=== PATIENT | male | born 1960 | race Caucasian/White ===

== ENCOUNTER → 2018-12-03 | Outpatient (CLI) | payer OTHER ==
--- NOTE | 2018-12-03 18:43 | MR ---
EXAMINATION TYPE: MR shoulder LT wo con DATE OF EXAM: 12/03/2018 COMPARISON: NONE HISTORY: Pain in left shoulder per order. Left shoulder pain with difficulty raising overhead since m id August 2018 TECHNIQUE: Multiplanar, multisequence imaging of the left shoulder is performed without contrast. FINDINGS: Rotator Cuff: Distal supraspinatus and infraspinatus tendons are intact. Subscapularis tendon is inta ct. Rotator cuff muscle bulk is preserved. No tears or abnormal signal is evident. Acromioclavicular Joint: Mild to moderate narrowing with mild capsular hypertrophy. Distal acromion m orphology is unremarkable. Underlying fat plane is maintained. Glenohumeral Joint: Small to moderate glenohumeral joint effusion. No significant spurring. Mild narr owing. Labrum: The superior labrum shows increased signal probable degenerative tear versus prominent cleft coronal image 13. Biceps Tendon: The long head of biceps is in normal location within bicipital groove. Bone marrow signal: No focal abnormal marrow signal is appreciated. Other: No additional significant abnormality is appreciated. IMPRESSION: No rotator cuff tear is evident.
== END ==
LOC: RADMRIMAIN 17:34
PROVIDERS: ATTEND Nurse Practitioner Acute Care
DX: M25.512 Pain in left shoulder (principal)

== ENCOUNTER → 2019-08-17 | Outpatient (CLI) | payer OTHER ==
--- NOTE | 2019-08-18 11:19 | CTL ---
EXAMINATION TYPE: CT Low Dose Lung DATE OF EXAM ORDERED: 08/17/2019 HISTORY: Personal history of tobacco abuse for 42 years. Lung cancer screening CT DLP: 126.[address] CTDI: 3.4 mGy Automated exposure control for dose reduction was used. SCREENING VISIT: Initial COMPARISON: None TECHNIQUE: Low dose computed tomography scan was performed through the chest at 1 mm thick sections a nd reconstructed images in the coronal plane at [address] DIAGNOSTIC QUALITY: Satisfactory FINDINGS: LUNG NODULES: None. A 3 mm solid pulmonary nodule seen in the right lung apex on series 4 image 36. Calcified granuloma is seen in the medial right lung apex on series 4 image 63, benign finding. 2 mm solid pulmonary nodule seen peripherally in the left upper lobe on series 4 image 78. LUNGS: COPD: Severity: Mild paraseptal Fibrosis: Severity: None Lymph nodes: No pathologically enlarged lymph nodes. RIGHT PLEURAL SPACE: Effusion: None Calcification: None Thickening: None Pneumothorax: None LEFT PLEURAL SPACE: Effusion: None Calcification: None Thickening: None Pneumothorax: None HEART: Heart Size: Normal Coronary calcification: Mild to moderate Pericardial effusion: Trace anterior OTHER FINDINGS: Upper abdomen: 4 mm nonobstructing left upper pole renal calculus. Bony thorax: Very minimal degenerative change Supraclavicular region: Unremarkable IMPRESSION: Lung RADS 2-benign appearance or behavior-nodules with a very low likelihood of becoming a clinically active cancer due to size. Continued annual screening with low dose CT chest is recommen ded in [address] CHEST RECOMMENDATION: Follow-up low-dose annual CT in [address] LUNG RAD: Lung-Rad 2 Benign Appearance or Behavior
== END | disposition home or self-care (01) ==
LOC: RADCTMAIN 07:43
DX: Z12.2 Encounter for screening for malignant neoplasm of respiratory organs (principal); Z87.891 Personal history of nicotine dependence

== ENCOUNTER → 2020-12-22 | Outpatient (CLI) | payer OTHER ==
--- NOTE | 2020-12-22 15:34 | CTL ---
EXAMINATION TYPE: CT Low Dose Lung DATE OF EXAM ORDERED: 12/22/2020 HISTORY: Long-term tobacco use. Lung cancer screening CT DLP: [address] CTDI: 1.95 mGy Automated exposure control for dose reduction was used. SCREENING VISIT: First study after baseline COMPARISON: Prior study 2019 TECHNIQUE: Low dose computed tomography scan was performed through the chest at 1 mm thick sections a nd reconstructed images in the coronal plane at [address] DIAGNOSTIC QUALITY: Satisfactory FINDINGS: LUNG NODULES: Present, detailed below: Stable 2 mm superior right upper lobe nodule axial image 49. Stable 3 mm calcified posterior medial right upper lobe nodule or granuloma axial image 76. No new or enlarging greater than 5 mm nodules. LUNGS: COPD: Severity: Mild Fibrosis: Severity: Mild biapical Lymph nodes: None Other findings: None RIGHT PLEURAL SPACE: Effusion: None Calcification: None Thickening: None Pneumothorax: None LEFT PLEURAL SPACE: Effusion: None Calcification: None Thickening: None Pneumothorax: None HEART: Heart Size: Normal Coronary calcification: Mild to moderate Pericardial effusion: Tiny anterior inferior aspect redemonstrated OTHER FINDINGS: Upper abdomen: Stable 4 mm nonobstructing left renal calculus axial image 71 posteriorly. Bony thorax: None Supraclavicular region: None Other: None IMPRESSION: No suspicious new or enlarging nodules. CT LUNG RAD AND CT CHEST RECOMMENDATION: Lung-Rad 2 Benign Appearance or Behavior: Continue annual sc reening with LDCT in 12 months. S Modifier (other clinically significant findings): None
== END | disposition home or self-care (01) ==
LOC: RADCTMAIN 14:53
DX: Z12.2 Encounter for screening for malignant neoplasm of respiratory organs (principal); Z87.891 Personal history of nicotine dependence
CPT/HCPCS: 71271

== ENCOUNTER → 2021-04-13 | Outpatient (CLI) | payer OTHER ==
[2021-04-13 17:33] LABS: African American GFR (CKD) >90 (>60 ml/min/1.73 sqM); Blood Urea Nitrogen 31 mg/dL (9-20); Non-African American GFR(CKD) >90 (>60 ml/min/1.73 sqM)
--- NOTE | 2021-04-15 16:00 | CT ---
EXAMINATION TYPE: CT angio abd aorta w/Runoff DATE OF EXAM: 04/13/2021 COMPARISON: None HISTORY: Abdominal aortic aneurysm and right iliac stenosis. CT DLP: 843.5 mGycm Automated exposure control for dose reduction was used. Contrast: 125 mL Isovue-370 Technique: CT of the abdomen and pelvis performed on spiral scan at 3 mm thick sections. Reconstructe d images in the coronal and sagittal plane are performed. Contrast was administered time for evaluati on for the abdominal aorta and aortic runoff. This may limit additional portions of the evaluation. T hree-D reconstructed images performed on a separate computer by the technologist are reviewed. FINDINGS: CT abdomen and pelvis: Liver has a mildly diminished density relation spleen. Mild fatty infiltration may be present. Spleen appears unremarkable. The adrenal glands are normal. Kidneys are normal witho ut masses cysts or hydronephrosis. Vascular calcifications within the aorta. There is prominence of t he mid abdominal aorta within the infrarenal region measuring 3.9 cm. This terminates the bifurcation . The right iliac vessel is prominent measuring 1.8 cm. Iliac vessels are patent. Inferior vena cava is unremarkable. Pancreas is normal. Gallbladder is decompressed. Loops of bowel w ithout oral contrast unremarkable. The appendix is normal. Urinary bladder is unremarkable. The prost ate is prominent. Osseous structures as visualized appear normal without lytic or sclerotic lesions. Aortic runoff: There is irregular filling of the abdominal aortic fusiform prominence. Aorta is paten t to the iliac vessels. Right common iliac artery is stenotic at its origin. Left common iliac artery at its origin is narrowed. Iliac vessels internal and external iliac vessels to the common femoral a rteries are patent the common femoral arteries are patent. Profunda femoris appears unremarkable. Sup erficial femoral arteries are normal to the obturator canals. Popliteal arteries are normal. Trifurca tion vessels are evident bilaterally. Anterior and posterior tibial arteries and peroneal artery to t he level of the ankle are patent. 3-D reconstructed images of the aortic runoff appears normal. The f low lumen of the aorta shows it to irregularity on the reconstructed images as well. IMPRESSION: 1. COMMON ILIAC VESSELS AT THE BIFURCATION APPEAR STENOTIC ON THE RIGHT AND NARROWED ON THE LEFT. THE RE IS SOME FUSIFORM PROMINENCE OF THE RIGHT COMMON ILIAC ARTERY. 2. PROMINENCE OF THE AORTA MEASURING UP TO 3.9 CM IN DIAMETER. THE FLOW LUMEN IS IRREGULAR AND NARROW ER RIGHT 3. THERE MAY BE SOME MILD FATTY INFILTRATION OF THE LIVER.
== END | disposition home or self-care (01) ==
LOC: RADCTMAIN 16:53
PROVIDERS: ATTEND Surgery
DX: I70.201 Unspecified atherosclerosis of native arteries of extremities, right leg (principal); K76.0 Fatty (change of) liver, not elsewhere classified
CPT/HCPCS: 82565; 84520; 75635; 36415; Q9967

== ENCOUNTER → 2022-02-11 | Outpatient (CLI) | payer OTHER ==
--- NOTE | 2022-02-11 17:00 | CTL ---
EXAMINATION TYPE: CT Low Dose Lung DATE OF EXAM ORDERED: 02/11/2022 HISTORY: 61-year-old male Z87.891, personal history of nicotine dependence, lung cancer screening CT DLP: 101.[address] CTDI: 2.8 mGy Automated exposure control for dose reduction was used. SCREENING VISIT: Annual follow-up COMPARISON: 12/22/2020 TECHNIQUE: Low dose computed tomography scan was performed through the chest with coronal and sagitta l reconstructions. CT DIAGNOSTIC QUALITY: Satisfactory FINDINGS: Heart is normal size without pericardial effusion. Scattered LAD and RCA coronary artery calcificatio ns are present. Aorta normal caliber with mild atherosclerotic arch calcifications and conventional arch vessel branc nannette anatomy. Borderline size 1 cm precarinal lymph node is unchanged. Additional scattered nonenlarged mediastinal lymph nodes. Likely reactive/post inflammatory. There is mild paraseptal and centrilobular emphysema. Mild diffuse bronchial wall thickening. Mild bi apical pleural parenchymal scarring. No consolidation or pleural effusion. Unchanged 3 mm lateral right apical pulmonary nodule, axial image 30. Unchanged calcified granuloma posteromedial right upper lobe, axial image 54. Some strandy atelectasis at the lung bases. Visualized upper abdomen shows no gross abnormality. Bones: No osseous destructive process. IMPRESSION: 1. Lung RADS 2, benign. Stable pulmonary nodules right upper lobe, one of which is a benign calcified granuloma. 2. COPD with mild emphysema. Recommend smoking cessation. CT LUNG RAD AND CT CHEST RECOMMENDATION: Lung-Rad 2 Benign Appearance or Behavior: Continue annual sc reening with LDCT in 12 months. S Modifier (other clinically significant findings): None
== END | disposition home or self-care (01) ==
LOC: RADCTMAIN 15:21
DX: Z12.2 Encounter for screening for malignant neoplasm of respiratory organs (principal); R91.8 Other nonspecific abnormal finding of lung field; Z87.891 Personal history of nicotine dependence
CPT/HCPCS: 71271

== ENCOUNTER 2022-05-06 06:30 | Day surgery (SDC) | payer OTHER ==
[2022-05-06] MEDS ORDERED: LACTATED RINGERS 1,000 ML IV SCH (06:42)
[2022-05-06 07:01] VITALS: TEMP 96.9
[2022-05-06 07:03] LABS: Glucose,Whole Blood 117 mg/dL (70-110)
[2022-05-06] MEDS ORDERED: LIDOCAINE 2% INJ 20 MG/ML (2 ML VIAL) ONE (07:34)
[2022-05-06] MEDS ORDERED: PROPOFOL 10 MG/ML 20 ML VIAL IV ONE (07:34)
--- NOTE | 2022-05-06 07:53 | P.PCN ---
Date of Procedure: 05/06/22 Procedure(s) Performed: Brief history: Patient is a pleasant 62-year-old white male scheduled for an elective upper endoscopy as well as colonoscopy as a part of evaluation of intermittent rectal bleeding and dark colored stool that lasted for about a week. Denies any associated abdominal pain, nausea vomiting. No prior history of peptic ulcer disease or recent NSAID use Procedure performed: Esophagogastroduodenoscopy with biopsy Colonoscopy Preoperative diagnosis: Melena/intermittent rectal bleeding of 1 day duration Anesthesia: MAC Procedure: After informed consent was obtained from the patient was brought into the endoscopy unit and IV sedation was administered by anesthesia under continuous monitoring. Initially upper endoscopy was done. The Olympus GF 160 video endoscope was inserted inserted into the mouth and esophagus intubated without any difficulty and was gradually advanced into the stomach and duodenum and carefully examined. The bulb and second part of the duodenum appeared normal. The scope was then withdrawn into the stomach adequately insufflated with air and upon careful examination the antrum had mild antral gastritis and biopsies were done from this area. Mucosa of the body, cardia and fundus appeared normal. The scope was then withdrawn into the esophagus. Small sliding Hiatal hernia noted. The GE junction was located at 40 cm to the incisors. It appeared regular with no erythema erosions or ulcerations. Rest of the esophagus appeared normal. Patient tolerated the procedure well. At this time the patient continued to remain sedation. Initial digital rectal examination was normal. Olympus CF 160 video colonoscope was then inserted into the rectum and gradually advanced to the cecum without any difficulty. Careful examination was performed as the scope was gradually being withdrawn. The prep was excellent. The cecum, ascending colon, transverse colon, descending colon, sigmoid colon and rectum appeared normal. Retroflexion was performed in the rectum and small internal hemorrhoids were noted. Patient tolerated the procedure well. Impression: 1. Upper endoscopy revealed mild antral gastritis and a small hiatal hernia 2. Colonoscopy revealed small internal hemorrhoids but no evidence of colorectal neoplasia Recommendations: Findings of this examination were discussed with the patient as well as his family. He was advised to follow with the biopsy results. Recommend repeat screening colonoscopy in 10 years.
[2022-05-06 08:03] VITALS: RESP 16
[2022-05-06 08:31] VITALS: BP 154/81; PULSE 55
== END 2022-05-06 08:42 | disposition home or self-care (01) ==
LOC: ORWHC2ENDO 06:30
PROVIDERS: ATTEND Internal Medicine Gastroenterology
DX: K29.50 Unspecified chronic gastritis without bleeding (principal); K64.8 Other hemorrhoids; K44.9 Diaphragmatic hernia without obstruction or gangrene; I25.10 Atherosclerotic heart disease of native coronary artery without angina pectoris; I10 Essential (primary) hypertension; E78.5 Hyperlipidemia, unspecified; I25.2 Old myocardial infarction; E11.9 Type 2 diabetes mellitus without complications; F17.200 Nicotine dependence, unspecified, uncomplicated; K21.9 Gastro-esophageal reflux disease without esophagitis; Z79.82 Long term (current) use of aspirin; Z79.899 Other long term (current) drug therapy; Z88.8 Allergy status to other drugs, medicaments and biological substances; Z79.891 Long term (current) use of opiate analgesic
CPT/HCPCS: 88305; 45378; 43239; J2704; J2001

== ENCOUNTER 2022-05-26 11:24 | Inpatient (IN) | payer OTHER ==
[~2022-05-26 11:24] MED LIST: ALPRAZolam 0.25 MG TAB PO PRN; SODIUM CHLORIDE 0.9% 1,000 ML in EMPTY BAG 1 BAG IV ONE
[2022-05-26 11:57] LABS: Glucose,Whole Blood 114 mg/dL (70-110)
[2022-05-26 12:14] LABS: Basophils # (A) 0.3 k/uL (0-0.2); Basophils % (A) 3 %; Eosinophils # (A) 0.3 k/uL (0-0.7); Eosinophils % (A) 3 %; HCT 47.9 % (39.0-53.0); HGB 16.7 gm/dL (13.0-17.5); Lymphocytes % (A) 23 %; MCH 32.7 pg (25.0-35.0); MCHC 34.9 g/dL (31.0-37.0); MCV 93.7 fL (80.0-100.0); Mean Platelet Volume 9.4; Monocytes # (A) 0.4 k/uL (0-1.0); Monocytes % (A) 5 %; Neutrophils # (A) 5.5 k/uL (1.3-7.7); Neutrophils % (A) 64 %; Platelet Count 221 k/uL (150-450); RBC 5.11 m/uL (4.30-5.90); RDW 12.1 % (11.5-15.5); WBC 8.6 k/uL (3.8-10.6)
[2022-05-26 12:23] LABS: African American GFR (CKD) >90 (>60 ml/min/1.73 sqM); Anion Gap 11 mmol/L; Blood Urea Nitrogen 18 mg/dL (9-20); Calcium 9.2 mg/dL (8.4-10.2); Carbon Dioxide 23 mmol/L (22-30); Chloride 104 mmol/L (98-107); Glucose 115 mg/dL (74-99); Non-African American GFR(CKD) >90 (>60 ml/min/1.73 sqM); Potassium 4.4 mmol/L (3.5-5.1); Sodium 138 mmol/L (137-145)
[2022-05-26] MEDS ORDERED: SUCCINYLCHOLINE CHLORIDE 200 MG/10 ML VIAL IV ONE (13:20)
[2022-05-26] MEDS ORDERED: HYDROmorphone (PF) 1 MG/ML ONE (13:20)
[2022-05-26] MEDS ORDERED: ePHEDrine 50 MG/ML 1 ML VIAL ONE (13:20)
[2022-05-26] MEDS ORDERED: LIDOCAINE 2% INJ 20 MG/ML (2 ML VIAL) ONE (13:20)
[2022-05-26] MEDS ORDERED: PROPOFOL 10 MG/ML 20 ML VIAL IV ONE (13:20)
[2022-05-26] MEDS ORDERED: NEOSTIGMINE 1 MG/ML 10 ML VIAL ONE (13:20)
[2022-05-26] MEDS ORDERED: GLYCOPYRROLATE 0.2 MG/ML 2 ML VIAL ONE (13:20)
[2022-05-26] MEDS ORDERED: MIDAZOLAM 2 MG/2 ML VIAL ONE (13:20)
[2022-05-26] MEDS ORDERED: ROCURONIUM 10 MG/ML (5 ML VIAL) IV ONE (13:20)
[2022-05-26] MEDS ORDERED: fentaNYL (PF) 50 MCG/ML 2 ML AMP ONE (13:20)
[2022-05-26] MEDS ORDERED: ceFAZolin 10 GM VIAL IVPB ONE (13:45)
[2022-05-26] MEDS ORDERED: LACTATED RINGERS 1,000 ML IV ONE (15:00)
[2022-05-26] MEDS ORDERED: IOPAMIDOL-250 100ML BTL INTRAARTER ONE ×2 (16:03→16:04)
[2022-05-26] MEDS ORDERED: NALOXONE 0.4 MG/ML 1 ML VIAL IVP PRN (16:36)
[2022-05-26] MEDS ORDERED: ACETAMINOPHEN TAB 325 MG TAB PO PRN (16:36)
[2022-05-26] MEDS ORDERED: HYDROcodone/APAP 5-325MG 1 EACH TAB PO PRN (16:36)
[2022-05-26] MEDS ORDERED: DOCUSATE 100 MG CAP PO PRN (16:36)
--- NOTE | 2022-05-26 16:59 | P.OP ---
Date of Procedure: 05/26/22 Preoperative Diagnosis: Severe aortoiliac occlusive disease was secondary lifestyle limiting bilateral extremity claudication. Postoperative Diagnosis: Same. Procedure(s) Performed: #1:Ultrasound-guided cannulation the common femoral artery bilaterally with placement of percutaneous closure device bilaterally. #2: Balloon angioplasty right common iliac artery #3: Placement of aortobiiliac endograft (Endurate). Implants: Endurate stent graft Anesthesia: GETA Surgeon: Josue Mckenzie Estimated Blood Loss (ml): 75 Urine output (ml): 275 Pathology: none sent Condition: stable Disposition: PACU Indications for Procedure: Patient is a 8-year-old male who presented with severe lower extremity claudication type symptoms which were significantly lifestyle and job-related into the stephen restrictions. In workup the patient was found to have a femoral pulse on the left and none on the right. He had undergone CT angiogram of the abdominal pelvic vessels. He was found to have subtotal occlusion of the right common iliac artery as well as severe aortic Stenosis with some degree of stenosis on the left. We discussed treatment options including open repair versus attempt at percutaneous repair. The advantages and disadvantages of each approach was discussed in great detail with the patient patient wished to proceed with percutaneous repair. Description of Procedure: Patient was brought the special procedure suite and was placed in the supine position. He was administered general endotracheal anesthesia delivered by the department anesthesiology Davis catheter is placed to gravity drainage. The patient did receive intravenously administered prophylactic antibiotics in the perioperative phase. The abdominal and pelvic and anterior thigh areas were sterilely prepped and draped in the usual manner. Utilizing ultrasound the right common femoral artery was identified. With the aid of ultrasound a multipurpose needle was utilized to cannulate the artery. Once cannulated Softip guidewire is advanced into the artery the needle was withdrawn and a 6-Kyrgyz sheath was placed. Subsequently to Perclose devices were placed. Similar procedures performed for the contralateral side. Guidewire was advanced through the right femoral sheath. I was initially unable to cross a high-grade iliac artery stenosis which was identified on right iliac angiography. Eventually this lesion was crossed. A 6 mm x 40 mm balloon antroplasty catheter was then utilized to balloon dilate this severely stenotic segment allowing for placement of an 8-Kyrgyz sheath into the lower aortic segment. Lunderquist wire was then placed and positioned at the aortic knob level. Through the left femoral sheath a Lunderquist wire was advanced and placed at the aortic knob level. The patient was systemically heparinized with 7500 units of heparin.. A pigtail catheter was advanced over the Lunderquist wire from the right and positioned at the L1-L2 interspace. The Lunderquist was then removed. A Endurate main body measuring 28 x 14 x 103 mm was then advanced through the left femoral artery. Planing angiogram was performed. Renal arteries were clearly identified. The main body was then deployed. The contralateral gate opened although was somewhat compressed by the amount of aortic thrombus. A wave guide assembler was then placed from the right and utilized to cannulate the gait. Cannulation of the graft was confirmed with placing a pigtail catheter within the stent graft and rotating confirming proper placement. The suprarenal segment was deployed without incident. The Lunderquist wire was replaced from the right and an Endurate stent graft limb measuring 16 x 24 x 93 mm was selected. Planing angiogram was performed on the iliac system marking the origin of the internal iliac artery. The limb was then deployed without incident. From the left to the main body was then completely deployed and a marker pigtail catheter was advanced and left iliac angiogram was performed with identification of the internal iliac artery. A 16 x 13 x 93 limb was selected and then deployed properly. Reliant balloon catheter was then utilized to balloon dilate the proximal aortic segment as well as the areas of overlap as well as the distal iliac segments. Stenosis yet remained at the common iliac system bilaterally and a 9 mm x 37 mm balloon angioplasty catheter and the omental stent were then deployed utilizing a kissing balloon technique at the common iliac level. Balloon angioplasty of the stents was performed upsizing to a 10 mm catheter. Subsequently completion angiogram was performed. This demonstrated no evidence of endoleak with normal filling of the renal segments. With the above findings noted sheaths were removed one-sided a time and the puncture wounds were closed with a previously placed Perclose devices. Patient tolerated the procedure well and awoke without complication was transferred to the recovery area satisfactory and stable condition. Palpable posterior tibial pulse was noted on the right. Femoral popliteal pulses are noted on the left. Total fluoroscopy time 27.1 minutes. Total contrast volume 80 ML's of Isovue 250.
[2022-05-26 18:01] LABS: Glucose,Whole Blood 82 mg/dL (70-110)
--- NOTE | 2022-05-26 18:19 | IR ---
Fluoroscopy HISTORY: Peripheral vascular occlusive disease 27.5 minutes fluoroscopy time supplied to the referring clinician. 343 intraoperative C-arm images d ocument the procedure. See dictated report from vascular surgery.
[2022-05-26 19:37] LABS: Glucose,Whole Blood 91 mg/dL (70-110)
[2022-05-26] MEDS: LOSARTAN 50 MG TAB PO SCH (19:55)
[2022-05-26] MEDS: METOPROLOL TARTRATE 50 MG TAB PO SCH (19:55)
[2022-05-26] MEDS: buPROPion SR 150 MG TABLET.ER PO SCH (19:56)
[2022-05-26] MEDS: ASPIRIN 81 MG PO SCH (19:57)
[2022-05-26] MEDS ORDERED: EZETIMIBE 10 MG TAB PO SCH (21:00)
[2022-05-27 07:42] LABS: Basophils # (A) 0.1 k/uL (0-0.2); Basophils % (A) 0 %; Eosinophils % (A) 0 %; HCT 44.3 % (39.0-53.0); HGB 15.3 gm/dL (13.0-17.5); Lymphocytes # (A) 1.5 k/uL (1.0-4.8); Lymphocytes % (A) 10 %; MCH 32.6 pg (25.0-35.0); MCHC 34.6 g/dL (31.0-37.0); MCV 94.2 fL (80.0-100.0); Mean Platelet Volume 9.7; Monocytes # (A) 0.9 k/uL (0-1.0); Monocytes % (A) 6 %; Neutrophils # (A) 12.1 k/uL (1.3-7.7); Neutrophils % (A) 82 %; Platelet Count 202 k/uL (150-450); RDW 12.1 % (11.5-15.5); WBC 14.7 k/uL (3.8-10.6)
[2022-05-27 07:48] LABS: African American GFR (CKD) >90 (>60 ml/min/1.73 sqM); Anion Gap 11 mmol/L; Blood Urea Nitrogen 17 mg/dL (9-20); Calcium 8.7 mg/dL (8.4-10.2); Carbon Dioxide 23 mmol/L (22-30); Chloride 101 mmol/L (98-107); Glucose 135 mg/dL (74-99); Non-African American GFR(CKD) >90 (>60 ml/min/1.73 sqM); Potassium 3.9 mmol/L (3.5-5.1); Sodium 135 mmol/L (137-145)
[2022-05-27 08:12] VITALS: BP 130/71; PULSE 70; RESP 16
[2022-05-27] MEDS: LOSARTAN 50 MG TAB PO SCH (08:12)
[2022-05-27] MEDS: buPROPion SR 150 MG TABLET.ER PO SCH (08:12)
[2022-05-27] MEDS: ASPIRIN 81 MG PO SCH (08:13)
[2022-05-27] MEDS: METOPROLOL TARTRATE 50 MG TAB PO SCH (08:22)
--- NOTE | 2022-05-27 08:36 | P.DS ---
Providers Date of admission: 05/26/22 11:24 Expected date of discharge: 05/27/22 Attending physician: Josue Mckenzie DO Consults: 05/26/22 05:59 Consult to Anesthesia Routine Consulting Provider: Anesthesia,Services Consult Reason/Comments: General anesthesia for Aortic Stent procedure 05/26/22 16:36 Consult Physician Routine Consulting Provider: Tab Douglas Consult Reason/Comments: medical management Do you want consulting provider notified?: Yes Primary care physician: Stated None Hospital Course: This a pleasant 62-year-old male with a history of severe aorto iliac occlusive disease with secondary to lifestyle limiting bilateral extremity claudication and daily nicotine abuse who had severe lower extremity claudication that significantly affected his lifestyle and job-related restrictions. He had a CT angiogram of the abdomen and pelvis and was found to have a subtotal occlusion of the right common iliac artery as well as severe aortic stenosis with some degree of stenosis on the left. Patient is postop day #14 ultrasound-guided cannulation of the MECH[employer]ICAL [employer] CHECKER bilaterally with placement of percutaneous closure device bilaterally, balloon angioplasty of the right common iliac artery and placement of aortobiiliac endograft. He has seen and examined and just has some complaints of pain in his right buttocks which she states feels like it's bruise. Otherwise lower extremities feel good. He has full sensory motor bilateral extremities. He has been urinating without difficulty. He has not been up as of yet. No abdominal pain, nausea or vomiting. He is tolerating his diet. He did have a low-grade temp at 99.8, through the night, temp now normal at 99.2. Plan is for discharge home this afternoon after he is up and ambulating. Exam: General appearance: The patient is alert, oriented, appears in no acute distress. HET: Head is normocephalic and atraumatic. Neck: Supple. Heart: S1 S2. Regular rate and rhythm. Lungs: Clear to auscultation bilaterally. Abdomen: Soft, nontender, nondistended. Extremities: Normal skin color and turgor. No cyanosis, rash, ulceration, clubbing, or edema. Bilateral palpable femoral pulses, dressings clean dry and intact, no hematoma noted. Bilateral dorsalis pedis and posterior tibialis pulses. The are warm to the touch, sensorimotor intact. Neurological: No focal deficits. Strength and sensation are grossly intact. The impression and plan of care has been dictated as directed. I performed a history and examination of this patient, discussed the same with the dictator. I agree with the dictator's note ,documented as a scribe. Any additional findings or plans will be noted. Procedures: #1:Ultrasound-guided cannulation the common femoral artery bilaterally with placement of percutaneous closure device bilaterally. #2: Balloon angioplasty right common iliac artery #3: Placement of aortobiiliac endograft (Endurate). Implants: Endurate stent graft Patient Condition at Discharge: Stable Plan - Discharge Summary Discharge Rx Participant: No New Discharge Prescriptions: New Clopidogrel [Plavix] 75 mg PO DAILY #30 tab Acetaminophen Tab [Tylenol] 650 mg PO Q4HR PRN tab PRN Reason: Mild Pain (Scale 1 to 5) Continue Aspirin [Adult Low Dose Aspirin EC] 81 mg PO BID Hydrocodone/Acetaminophen [Hydrocodone/Acetaminophen 10-300] 1 tab PO DAILY Multivitamin [Men's Multi-Vitamin] 1 tab PO DAILY amLODIPine [Norvasc] 10 mg PO DAILY Metoprolol Tartrate [Lopressor] 50 mg PO BID Empagliflozin [Jardiance] 12.5 mg PO DAILY Losartan [Cozaar] 50 mg PO BID buPROPion HCL [Wellbutrin SR] 150 mg PO Q12H Ezetimibe [Zetia] 10 mg PO HS Discharge Medication List Aspirin [Adult Low Dose Aspirin EC] 81 mg PO BID 11/17/16 [History] Hydrocodone/Acetaminophen [Hydrocodone/Acetaminophen 10-300] 1 tab PO DAILY 11/17/16 [History] Multivitamin [Men's Multi-Vitamin] 1 tab PO DAILY 11/17/16 [History] Losartan [Cozaar] 50 mg PO BID 05/06/22 [History] Empagliflozin [Jardiance] 12.5 mg PO DAILY 05/26/22 [History] Ezetimibe [Zetia] 10 mg PO HS 05/26/22 [History] Metoprolol Tartrate [Lopressor] 50 mg PO BID 05/26/22 [History] amLODIPine [Norvasc] 10 mg PO DAILY 05/26/22 [History] buPROPion HCL [Wellbutrin SR] 150 mg PO Q12H 05/26/22 [History] Acetaminophen Tab [Tylenol] 650 mg PO Q4HR PRN tab 05/27/22 [Rx] Clopidogrel [Plavix] 75 mg PO DAILY #30 tab 05/27/22 [Rx] Follow up Appointment(s)/Referral(s): Josue Mckenzie DO [Doctor of Osteopathic Medicine] - 1 Week (Office is closed. Please call to schedule appointment) Activity/Diet/Wound Care/Special Instructions: No driving for two days. Avoid heavy lifting greater than 10 lbs , pushing, pulling, straining, flights of stairs for three days. ok to shower tomorrow but no baths, pools, soaking in tubs for three days to avoid risk of infection. signs of infection ie: fever, rash, drainage from puncture site, swelling contact doctor or return to ER immediately. Heavy bleeding from puncture site apply firm direct pressure and return to ER. Do not attempt to drive self. low sodium/low fat diet You will be starting a new medication Plavix, antiplatelet education. Please see attached printout. Discharge Disposition: HOME SELF-CARE
[2022-05-27] MEDS ORDERED: CLOPIDOGREL 75 MG TAB PO SCH (09:00)
[2022-05-27] MEDS ORDERED: DAPAGLIFLOZIN PROPANEDIOL 5 MG TABLET PO SCH (09:00)
[2022-05-27] MEDS ORDERED: amLODIPine 10 MG TAB PO SCH (09:00)
[2022-05-27 11:37] LABS: Glucose,Whole Blood 150 mg/dL (70-110)
[2022-05-27 12:56] VITALS: TEMP 98
== END 2022-05-27 12:55 | disposition home or self-care (01) | DRG 254 ==
LOC: 2ORMAIN 11:24 → 2SICU 14:06 → 3SCARD 16:20
PROVIDERS: ADMIT Surgery; ATTEND Surgery
PROC: 047C3ZZ Dilation of Right Common Iliac Artery, Percutaneous Approach (ICD-10-PCS; principal; 2022-05-26 13:00)
PROC: 04WY3DZ Revision of Intraluminal Device in Lower Artery, Percutaneous Approach (ICD-10-PCS; 2022-05-26 13:00)
DX: I70.213 Atherosclerosis of native arteries of extremities with intermittent claudication, bilateral legs (principal); F17.210 Nicotine dependence, cigarettes, uncomplicated; Z79.891 Long term (current) use of opiate analgesic; Z79.84 Long term (current) use of oral hypoglycemic drugs; Z79.82 Long term (current) use of aspirin; Z79.899 Other long term (current) drug therapy; Z28.310 Unvaccinated for COVID-19
CPT/HCPCS: 34705; 37221; 37223; 80048; 85025; 86850; 86900; 86901

== ENCOUNTER → 2023-02-14 | Outpatient (CLI) | payer OTHER ==
--- NOTE | 2023-02-15 23:02 | CTL ---
EXAMINATION TYPE: CT Low Dose Lung DATE OF EXAM ORDERED: 02/14/2023 HISTORY: 62-Year-old male Z87.891, 40 pack-year history, Lung cancer screening CT DLP: 104.[address] CTDI: 2.6 mGy Automated exposure control for dose reduction was used. SCREENING VISIT: Annual follow-up COMPARISON: 02/11/2022 TECHNIQUE: Low dose computed tomography scan was performed through the chest with coronal and sagitta l reconstructions. CT DIAGNOSTIC QUALITY: Satisfactory FINDINGS: The heart is normal size without pericardial effusion. LAD and RCA coronary calcifications are presen t. Prominent mediastinal lymph nodes measuring up to 1 cm in the precarinal and lower paratracheal regio n remain unchanged. Aorta normal caliber with conventional arch vessel branching anatomy. Mild paraseptal emphysema is noted within the lungs with mild diffuse bronchial wall thickening in ke eping with COPD. Small subpleural pulmonary nodules posterior right upper lobe some of which now appears calcified sug gesting benign calcified granulomas. No suspicious enlarging pulmonary nodule here. No consolidation or pleural effusion. Tiny hiatal hernia. Partially visualized endovascular abdominal aortic stent graft. Partially visuali zed left renal stone measuring at least 6 mm. Bones: No osseous destructive process. IMPRESSION: 1. LungRADS 2, benign. A few small subpleural pulmonary nodules posterior right upper lobe remain unc hanged, a couple of which represent benign calcified granulomas. 2. COPD with mild paraseptal emphysema. Recommend smoking cessation. 3. Tiny hiatal hernia. Partially visualized nonobstructive left renal calculus measuring at least [address] LUNG RAD AND CT CHEST RECOMMENDATION: Lung-Rad 2 Benign Appearance or Behavior: Continue annual sc reening with LDCT in 12 months. S Modifier (other clinically significant findings): None
== END | disposition home or self-care (01) ==
LOC: RADCTMAIN 13:22
DX: Z12.2 Encounter for screening for malignant neoplasm of respiratory organs (principal); R91.8 Other nonspecific abnormal finding of lung field; J43.9 Emphysema, unspecified; K44.9 Diaphragmatic hernia without obstruction or gangrene; N20.0 Calculus of kidney; J84.10 Pulmonary fibrosis, unspecified; F17.210 Nicotine dependence, cigarettes, uncomplicated
CPT/HCPCS: 71271

== ENCOUNTER → 2024-02-17 | Outpatient (CLI) | payer OTHER ==
--- NOTE | 2024-02-17 09:18 | CTL ---
EXAMINATION TYPE: CT Low Dose Lung DATE OF EXAM ORDERED: 02/17/2024 HISTORY: . Lung cancer screening CT DLP: 117.[address] CTDI: 3.10 mGy Automated exposure control for dose reduction was used. SCREENING VISIT: Subsequent COMPARISON: 02/14/2023 TECHNIQUE: Low dose computed tomography scan was performed through the chest at 1 mm thick sections a nd reconstructed images in the coronal plane at [address] DIAGNOSTIC QUALITY: Satisfactory FINDINGS: LUNG NODULES: None. LUNGS: COPD: Severity: None Fibrosis: Severity: None Lymph nodes: There is a 1.1 cm pretracheal lymph node. Additional shotty lymphadenopathy is present. Findings are stable. Other findings: None RIGHT PLEURAL SPACE: Effusion: None Calcification: None Thickening: None Pneumothorax: None LEFT PLEURAL SPACE: Effusion: None Calcification: None Thickening: None Pneumothorax: None HEART: Other: Ascending thoracic aorta at the level the main pulmonary artery measures 3.4 cm. The main pul monary artery at the bifurcation measures 2.6 cm. Heart Size: Normal Coronary calcification: Moderate Pericardial effusion: None OTHER FINDINGS: Upper abdomen: Normal Bony thorax: Normal Supraclavicular region: Normal IMPRESSION: 1. Benign findings or appearance FOLLOW UP CT CHEST RECOMMENDATION: Low-dose CT chest one year CT LUNG RAD: Lung-Rad 2 Benign Appearance or Behavior
== END | disposition home or self-care (01) ==
LOC: RADCTMAIN 07:39
PROVIDERS: ATTEND Family Medicine
DX: Z12.2 Encounter for screening for malignant neoplasm of respiratory organs (principal); F17.210 Nicotine dependence, cigarettes, uncomplicated
CPT/HCPCS: 71271

== ENCOUNTER → 2025-02-17 | Outpatient (CLI) | payer OTHER ==
--- NOTE | 2025-02-17 08:53 | CTL ---
EXAMINATION TYPE: CT Low Dose Lung DATE OF EXAM: 02/17/2025 8:42 AM COMPARISON: 02/17/2024. CLINICAL INDICATION: Male, 64 years old with history of Z12.2 LUNG CA SCR F17.210; Current smoker 1 p pd x 50 years, history of tobacco use. TECHNIQUE: Multiple axial non-contrast scans were obtained from approximately the lung apices through the upper abdomen. Coronal and sagittal reformatted images were obtained. Low dose technique was uti lized. MIP were created on a separate workstation and submitted for review. CT DLP: 92 mGycm, Automated exposure control for dose reduction was used. CT Contrast: Contrast used: None Oral contrast used: None FINDINGS: Lack of intravenous contrast and low dose technique limits the evaluation of the vascular and soft ti ssue structures. LUNGS: No evidence of pulmonary fibrosis. No evidence of focal consolidation, pneumothorax or pleural effusion. Centrilobular emphysema changes. Nodules: RUL: Medial calcified granuloma series 5 image 13.. RML: None. RLL: None. NAEL: None. LLL: None. AIRWAY: Patent and unremarkable. HEART: Size within normal limits. Moderate coronary artery calcifications present. MEDIASTINUM: No gross evidence of adenopathy. VASCULATURE: No aortic aneurysm. MUSCULOSKELETAL: No acute osseous abnormalities SOFT TISSUES/LYMPH NODES: Unremarkable. LOWER NECK: No significant findings. UPPER ABDOMEN: No significant findings. IMPRESSION: 1. No clinically significant pulmonary nodules. 2. Mild emphysema. CT LUNG RAD AND CT CHEST RECOMMENDATION: Lung-Rad 2 Benign Appearance or Behavior: Continue annual sc reening with LDCT in 12 months. S Modifier (other clinically significant findings): None Recommend smoking cessation (if current smoker), or continuation of smoking cessation (if prior smoke r). Annual screening for lung cancer with low-dose computed tomography is recommended in adults ages 55 to 77 years who have a 30 pack-year smoking history and currently smoke or have quit within the pa st 15 years. Screening should be discontinued once a person has not smoked for 15 years or develops a health problem that substantially limits life expectancy or the ability or willingness to have curat chela lung surgery. Lung rads 2021 [email or web address] [email or web address], , 02/17/2025 8:51 AM
== END | disposition home or self-care (01) ==
LOC: RADCTMAIN 07:59
PROVIDERS: ATTEND Internal Medicine Pulmonary Disease
DX: Z12.2 Encounter for screening for malignant neoplasm of respiratory organs (principal); F17.210 Nicotine dependence, cigarettes, uncomplicated; J43.2 Centrilobular emphysema
CPT/HCPCS: 71271